=== PATIENT | female | born 1990 | race American Indian/Alaskan Native ===

== ENCOUNTER 2017-11-06 21:22 | Emergency (ER) | payer MEDICAID ==
[2017-11-06 21:49] VITALS: BP 151/87
[2017-11-06] MEDS ORDERED: NACL 0.9% 1000 ML 1,000 ML IV ONE (22:00)
[2017-11-06] MEDS ORDERED: PEPCID IV ONE (22:00)
[2017-11-06] MEDS ORDERED: BENADRYL IV ONE (22:00)
--- NOTE | 2017-11-06 22:07 | Emergency Department Report ---
ED Allergic Reaction HPI - General Chief complaint: Allergic Reaction Stated complaint: ALLERGIC REACTION(SEAFOOD) Time Seen by Provider: 11/06/17 21:59 Source: patient Mode of arrival: Ambulatory Limitations: No Limitations - History of Present Illness Initial Comments: This is a 27-year-old female nontoxic, well nourished in appearance, no acute signs of distress presents to the ED with c/o of allergic reaction with rash. Patient stated she was eating shrimp 2 hours ago and then started to develop a rash. Patient stated this has happened to patient in the past. Patient denies any difficulty breathing, shortness of breath, facial swelling, hoarseness, drooling, fever, chills, nausea, vomiting, chest pain shortness of breath. Allergies includes shellfish and ofloxacin. Patient denies past medical history. MD Complaint: allergic reaction, hives -: This evening Exposure: food Symptoms: rash, itching. denies: facial swelling, lip swelling, difficulty swallowing, difficulty breathing, orolingual swelling, hoarseness, syncopy, dizziness, nausea, vomiting, abdominal pain Severity: mild Treatment Prior to Arrival: none Previous Allergy History: none - Related Data Home Medications Medication Instructions Recorded Confirmed Last Taken Pnv with Ca,No.72/Iron/FA 1 tab PO DAILY 08/29/14 08/29/14 08/28/14 11:00 [ Plus Tablet] 1 tab Previous Rx's Medication Instructions Recorded Last Taken Type Ibuprofen [Motrin 600 MG tab] 600 mg PO Q6H PRN #50 tablet 08/30/14 Unknown Rx Vit-Fe Fumar-FA [ 1 each PO QDAY #60 tablet 08/30/14 Unknown Rx Vitamin] oxyCODONE /ACETAMINOPHEN [Percocet 2 tab PO Q4H PRN #50 tablet 08/30/14 Unknown Rx 5/325 mg] diphenhydrAMINE [Benadryl CAP] 25 mg PO Q6HR PRN #30 capsule 11/06/17 Unknown Rx predniSONE [Deltasone] 40 mg PO QDAY #5 tab 11/06/17 Unknown Rx Allergies Allergy/AdvReac Type Severity Reaction Status Date / Time shellfish derived Allergy Rash Verified 11/06/17 21:49 levofloxacin [From Levaquin] AdvReac Intermediate Itching Unverified 08/29/14 05 :52 ED Review of Systems ROS: Stated complaint: ALLERGIC REACTION(SEAFOOD) Other details as noted in HPI Constitutional: denies: chills, fever Eyes: denies: eye pain, eye discharge, vision change ENT: denies: ear pain, throat pain Respiratory: denies: cough, shortness of breath, wheezing Cardiovascular: denies: chest pain, palpitations Endocrine: no symptoms reported Gastrointestinal: denies: abdominal pain, nausea, diarrhea Genitourinary: denies: urgency, dysuria, discharge Musculoskeletal: denies: back pain, joint swelling, arthralgia Skin: rash, pruritus. denies: lesions Neurological: denies: headache, weakness, paresthesias Psychiatric: denies: anxiety, depression Hematological/Lymphatic: denies: easy bleeding, easy bruising ED Past Medical Hx - Past Medical History Hx Hypertension: No Hx Heart Attack/AMI: No Hx Congestive Heart Failure: No Hx Diabetes: No Hx Deep Vein Thrombosis: No Hx Liver Disease: No Hx Renal Disease: No Hx Sickle Cell Disease: No Hx Seizures: No Hx Asthma: No Hx COPD: No Hx HIV: No - Social History Smoking Status: Unknown if ever smoked Substance Use Type: None - Medications Home Medications: Home Medications Medication Instructions Recorded Confirmed Last Taken Type Pnv with Ca,No.72/Iron/FA 1 tab PO DAILY 08/29/14 08/29/14 08/28/14 11:00 History [ Plus Tablet] 1 tab Ibuprofen [Motrin 600 MG tab] 600 mg PO Q6H PRN #50 tablet 08/30/14 Unknown Rx Vit-Fe Fumar-FA [ 1 each PO QDAY #60 tablet 08/30/14 Unknown Rx Vitamin] oxyCODONE /ACETAMINOPHEN [Percocet 2 tab PO Q4H PRN #50 tablet 08/30/14 Unknown Rx 5/325 mg] diphenhydrAMINE [Benadryl CAP] 25 mg PO Q6HR PRN #30 capsule 11/06/17 Unknown Rx predniSONE [Deltasone] 40 mg PO QDAY #5 tab 11/06/17 Unknown Rx ED Physical Exam - General Limitations: No Limitations General appearance: alert, in no apparent distress - Head Head exam: Present: atraumatic, normocephalic, normal inspection - Eye Eye exam: Present: normal appearance, PERRL, EOMI. Absent: scleral icterus, conjunctival injection, nystagmus, periorbital swelling, periorbital tenderness Pupils: Present: normal accommodation - ENT ENT exam: Present: normal exam, normal orophraynx, mucous membranes moist, TM's normal bilaterally, normal external ear exam - Neck Neck exam: Present: normal inspection, full ROM. Absent: tenderness, meningismus, lymphadenopathy, thyromegaly - Respiratory Respiratory exam: Present: normal lung sounds bilaterally. Absent: respiratory distress, wheezes, rales, rhonchi, stridor, chest wall tenderness, accessory muscle use, decreased breath sounds, prolonged expiratory - Cardiovascular Cardiovascular Exam: Present: regular rate, normal rhythm, normal heart sounds. Absent: bradycardia, tachycardia, irregular rhythm, systolic murmur, diastolic murmur, rubs, gallop - GI/Abdominal GI/Abdominal exam: Present: soft, normal bowel sounds. Absent: distended, tenderness, guarding, rebound, rigid, diminished bowel sounds - Rectal Rectal exam: Present: deferred - Extremities Exam Extremities exam: Present: normal inspection, full ROM, normal capillary refill. Absent: tenderness, pedal edema, joint swelling, calf tenderness - Back Exam Back exam: Present: normal inspection, full ROM. Absent: tenderness, CVA tenderness (R), CVA tenderness (L), muscle spasm, paraspinal tenderness, vertebral tenderness, rash noted - Neurological Exam Neurological exam: Present: alert, oriented X3, CN II-XII intact, normal gait, reflexes normal - Psychiatric Psychiatric exam: Present: normal affect, normal mood - Skin Skin exam: Present: warm, dry, intact, normal color, rash (diffuse), urticaria ( diffuse) - Other Other exam information: No angioedema. No facial swelling. Normal tongue size. ED Course Vital Signs 11/06/17 21:46 Temperature 98.4 F Pulse Rate 90 Respiratory 18 Rate Blood Pressure 151/87 O2 Sat by Pulse 99 Oximetry - Reevaluation(s) Reevaluation #1: 11/06/17 22:19 Patient is speaking in full sentences with no signs of distress noted. ED Medical Decision Making - Medical Decision Making This is a 27-year-old female that presents with allergic reaction. Patient is stable and was examined by me. There is no angioedema. patient is speaking in full sentences with no signs of distress. There is no difficulty breathing as per patient.. Patient received 1 L of normal saline, Pepcid IV, Solu-Medrol IV , and Benadryl. Patient states symptoms of itching has subsided. Vital signs stable. Patient was instructed not to operate any machinery after discharge due to drowsiness of Benadryl. Patient received Benadryl and prednisone at discharge. Patient was instructed Follow-up with a primary care doctor in 3-5 days or if symptoms worsen and continue return to emergency room as soon as possible. At time time of discharge, the patient does not seem toxic or ill in appearance. No acute signs of distress noted. Patient agrees to discharge treatment plan of care. No further questions noted by the patient. Critical care attestation.: If time is entered above; I have spent that time in minutes in the direct care of this critically ill patient, excluding procedure time. ED Disposition Clinical Impression: Allergic reaction Qualifiers: Encounter type: initial encounter Qualified Code(s): T78.40XA - Allergy, unspecified, initial encounter Disposition: DC- TO HOME OR SELFCARE Is pt being admited?: No Does the pt Need Aspirin: No Condition: Stable Instructions: Urticaria (ED), Prednisone (By mouth), Diphenhydramine (By mouth) Additional Instructions: Follow-up with a primary care doctor in 3-5 days or if symptoms worsen and continue return to emergency room as soon as possible. Do not operate any machinery after discharge due to drowsiness from Benadryl that your received in the ED Prescriptions: diphenhydrAMINE [Benadryl CAP] 25 mg PO Q6HR PRN #30 capsule PRN Reason: Itching predniSONE [Deltasone] 40 mg PO QDAY #5 tab Referrals: PRIMARY MD ALVARO [Referring] - 3-5 Days [facility] [Outside] - 3-5 Days [facility] [Outside] - 3-5 Days GERBER JENKINS MD [Staff Physician] - 3-5 Days Forms: Work/School Release Form(ED)
== END 2017-11-06 23:55 | disposition home or self-care (01) ==
LOC: ED 21:22
DX: T78.1XXA Other adverse food reactions, not elsewhere classified, initial encounter (principal); Z91.013 Allergy to seafood; Z88.1 Allergy status to other antibiotic agents
CPT/HCPCS: 96361; 96374; 96375; 99282; J1200; J2930; J7030

== ENCOUNTER 2019-10-20 18:03 | Emergency (ER) | payer SELFPAY ==
[2019-10-20 19:22] VITALS: BP 155/96
--- NOTE | 2019-10-20 19:25 | Event Note ---
ED Screening Note Date of service: 10/20/19 Time: 19:21 ED Screening Note: This initial assessment/diagnostic orders/clinical plan/treatment(s) is/are subject to change based on patients health status, clinical progression and re- assessment by fellow clinical providers in the ED. Further treatment and workup at subsequent clinical providers discretion. Patient/guardian urged not to elope from the ED as their condition may be serious if not clinically assessed and managed. 29 yo female c/o right flank pain radiating to right groin. Pain is off and on started early today. She reports hx of kidney stones. No vomiting , + nausea when pain comes. Initial orders include: cbc cmp ua HCG ct ABD/PELVIS W/O
[2019-10-20 19:53] LABS: Basophils # (Auto) 0.1 K/mm3 (0.0-0.1); Basophils % (Auto) 0.5 % (0.0-1.8); Eosinophils % (Auto) 0.3 % (0.0-4.3); Hematocrit 36.9 % (30.3-42.9); Hemoglobin 12.6 gm/dl (10.1-14.3); Lymphocytes # (Auto) 2.6 K/mm3 (1.2-5.4); Lymphocytes % (Auto) 25.6 % (13.4-35.0); Mean Corpuscular HGB Conc 34 % (30-34); Mean Corpuscular Volume 91 fl (79-97); Monocytes # (Auto) 0.5 K/mm3 (0.0-0.8); Monocytes % (Auto) 4.7 % (0.0-7.3); Platelet Count 450 K/mm3 (140-440); Red Blood Count 4.08 M/mm3 (3.65-5.03); Red Cell Distribution Width 14.2 % (13.2-15.2)
[2019-10-20 20:04] LABS: Bacteria,Urine 1+ /HPF (Negative); Bilirubin,Urine NEG (Negative); Blood,Urine MOD (Negative); Color,Urine Yellow (Yellow); Mucus,Urine 3+ /HPF; Urobilinogen,Urine < 2.0 mg/dL (<2.0)
[2019-10-20 20:07] LABS: Alanine Aminotransferase 22 units/L (7-56); Albumin 4.2 g/dL (3.9-5); BUN/Creatinine Ratio 12; Blood Urea Nitrogen 6 mg/dL (7-17); Hemolysis Index 34
== END 2019-10-20 21:52 | disposition left against medical advice (07) ==
LOC: ED 18:03
DX: R11.2 Nausea with vomiting, unspecified (principal); Z53.21 Procedure and treatment not carried out due to patient leaving prior to being seen by health care provider
CPT/HCPCS: 36415; 80053; 81001; 84703; 85025